=== PATIENT | female | born 1955 | race Caucasian/White ===

== ENCOUNTER 2018-02-01 20:03 | Emergency (ER) | payer MEDICARE ==
[2018-02-01 21:52] LABS: BILIRUBIN,URINE NEGATIVE (NEG); CLARITY,URINE CLEAR; COLOR,URINE YELLOW; GLUCOSE,URINE NEGATIVE (NEG); NITRITE,URINE NEGATIVE (NEG); PROTEIN,URINE NEGATIVE (NEG-TRACE); UROBILINOGEN,URINE 0.2 mg/dL (0.2 mg/dL)
[2018-02-01 21:57] LABS: BACTERIA,URINE MANY /HPF (0-FEW); RBC,URINE 0 /HPF (0-2); SQUAMOUS EPITHELIAL CELL,UR MANY /LPF; WBC,URINE 20-40 /HPF (0-4)
== END 2018-02-01 22:14 | disposition home or self-care (01) ==
LOC: ER 20:03
DX: N39.0 Urinary tract infection, site not specified (principal); E11.9 Type 2 diabetes mellitus without complications; E78.00 Pure hypercholesterolemia, unspecified; I10 Essential (primary) hypertension; Z90.49 Acquired absence of other specified parts of digestive tract; Z98.51 Tubal ligation status; Z90.711 Acquired absence of uterus with remaining cervical stump; Z79.4 Long term (current) use of insulin; Z88.2 Allergy status to sulfonamides; Z88.6 Allergy status to analgesic agent; Z88.5 Allergy status to narcotic agent; Z88.8 Allergy status to other drugs, medicaments and biological substances; Z91.041 Radiographic dye allergy status
CPT/HCPCS: 81001; 99283

== ENCOUNTER 2018-02-06 15:14 | Emergency (ER) | payer MEDICARE | END 2018-02-06 16:40 | disposition home or self-care (01) | LOC: ER 16:40 | DX: G89.29 Other chronic pain (principal); M54.5 Low back pain; E11.9 Type 2 diabetes mellitus without complications; E78.00 Pure hypercholesterolemia, unspecified; K21.9 Gastro-esophageal reflux disease without esophagitis; I10 Essential (primary) hypertension; F31.9 Bipolar disorder, unspecified; Z90.49 Acquired absence of other specified parts of digestive tract; Z90.711 Acquired absence of uterus with remaining cervical stump; Z88.2 Allergy status to sulfonamides; Z91.041 Radiographic dye allergy status; Z88.5 Allergy status to narcotic agent; Z88.8 Allergy status to other drugs, medicaments and biological substances | CPT/HCPCS: 99283 ==

== ENCOUNTER 2018-02-06 22:02 | Emergency (ER) | payer MEDICARE | END 2018-02-06 22:39 | disposition home or self-care (01) | LOC: ER 22:02 | DX: M54.5 Low back pain (principal); E78.00 Pure hypercholesterolemia, unspecified; E11.9 Type 2 diabetes mellitus without complications; I10 Essential (primary) hypertension; F31.9 Bipolar disorder, unspecified; Z90.49 Acquired absence of other specified parts of digestive tract; Z98.51 Tubal ligation status; Z90.711 Acquired absence of uterus with remaining cervical stump; Z88.2 Allergy status to sulfonamides; Z90.410 Acquired total absence of pancreas; Z88.5 Allergy status to narcotic agent; Z88.8 Allergy status to other drugs, medicaments and biological substances | CPT/HCPCS: 99283 ==

== ENCOUNTER 2018-02-06 23:03 | Emergency (ER) | payer MEDICARE ==
[2018-02-06] MEDS: KETOROLAC 60 MG/2 ML INJ. IM (23:30)
[2018-02-07] MEDS: ONDANSETRON ODT 4 MG TAB.RAPDIS. PO (00:01)
== END 2018-02-07 00:02 | disposition home or self-care (01) ==
LOC: ER 02-07 00:02
DX: M54.5 Low back pain (principal); G89.29 Other chronic pain; E78.00 Pure hypercholesterolemia, unspecified; E11.9 Type 2 diabetes mellitus without complications; K21.9 Gastro-esophageal reflux disease without esophagitis; I10 Essential (primary) hypertension; Z98.51 Tubal ligation status; Z90.49 Acquired absence of other specified parts of digestive tract; Z90.711 Acquired absence of uterus with remaining cervical stump; Z88.2 Allergy status to sulfonamides; Z90.410 Acquired total absence of pancreas; Z88.5 Allergy status to narcotic agent; Z88.8 Allergy status to other drugs, medicaments and biological substances
CPT/HCPCS: 96372; 99284-25; J1885

== ENCOUNTER 2020-11-08 03:24 | Emergency (ER) | payer MEDICARE ==
[~2020-11-08] VITALS: Ht 162.6 cm; Wt 104.5 kg
[~2020-11-08 03:24] MED LIST: ACET500T68 PO; ARIP20TA5 PO; ASPI-630 PO; ASPI-886 PO; CEPH-264 PO; CETI10TA16 PO; CYCL10TA2 PO; HYDR12.58 PO; INSU100C4 SQ; INSU100I27 SQ; INSU100V13 SQ; LOSA100T14 PO; LOSA25TA54 PO; LOVA40TA2 PO; MELA10TA PO; METF750T39 PO; NITR100C62 PO; NYST15CR TP; RISP4TAB65 PO; SITA100T PO; TEMA15CA PO; TEMA30CA PO; TRAZ-118 PO; UBID1CAP41 PO
[2020-11-08 03:25] VITALS: BP 171/74
--- NOTE | 2020-11-08 03:57 | PHYS DOC ---
Past Medical History Past Medical History: Bipolar, Diabetes-Type II, High Cholesterol, Hypertension Past Surgical History: Cholecystectomy, Hysterectomy, Tonsillectomy, Tubal ligation Additional Past Surgical Histo: partial hysterectomy, wisdom teeth removal Smoking Status: Former Smoker Alcohol Use: None Drug Use: None General Adult EDM: Chief Complaint: BACK PAIN - NO INJURY HPI: HPI: 65-year-old female with past medical history multiple comorbidities, presents the ED with complaints of "I had back pain in multiple places," but upon ed arrival, reports back pain is now a 1/8 and has "resolved." States pain woke her up. Denies any falls or traumas. No history of prior back problems or surgeries. Patient also reports yesterday she had subjective fever/chills and nausea. Was told by her primary care physician to be tested for Covid. Is requesting a covid test. No history of hospitalizations or admissions in the past 3 months. No known Covid exposure. Review of Systems: Review of Systems: Constitutional: Denies fever or chills. [] Eyes: Denies change in visual acuity. [] HENT: Denies nasal congestion or sore throat. [] Respiratory: Denies cough or shortness of breath. [] Cardiovascular: Denies chest pain or edema. [] GI: Denies abdominal pain, nausea, vomiting, bloody stools or diarrhea. [] : Denies dysuria, hematuria, urinary or bowel retention or incontinence Musculoskeletal: Denies back pain or joint pain. [] Integument: Denies rash. [] Neurologic: Denies headache, neck stiffness, saddle anesthesia, focal weakness or sensory changes. [] Endocrine: Denies polyuria or polydipsia. [] Lymphatic: Denies swollen glands. [] Psychiatric: Denies depression or anxiety. [] Heart Score: Risk Factors: Risk Factors: DM, Current or recent (<one month) smoker, HTN, HLP, family history of CAD, obesity. Risk Scores: Score 0 - 3: 2.5% MACE over next 6 weeks - Discharge Home Score 4 - 6: 20.3% MACE over next 6 weeks - Admit for Clinical Observation Score 7 - 10: 72.7% MACE over next 6 weeks - Early Invasive Strategies Allergies: Allergies: Allergies Coded Allergies Type Severity Reaction Last Updated Verified Sulfa (Sulfonamide Antibiotics) Allergy Intermediate hives 12/09/15 Yes iodine Allergy Intermediate 12/09/15 Yes magnesium stearate Allergy Intermediate Swelling 02/02/18 Yes naproxen Allergy Intermediate hives 12/09/15 Yes Uncoded Allergies Type Severity Reaction Last Updated Verified stearic acid Allergy Severe facial swelling 06/22/15 Physical Exam: PE: Constitutional: Well developed, well nourished, no acute distress, non-toxic appearance. HENT: Normocephalic, atraumatic, Eyes: EOMI, conjunctiva normal, no discharge. Neck: Normal range of motion, supple, Cardiovascular: S1/2 present, regular rhythm Lungs & Thorax: Speaking in full sentences, bilateral equal chest rise, no tachypnea or increased work of breathing Abdomen: soft, no tenderness, Skin: Warm, dry, no erythema, no rash. [] Back: No midline tenderness, no CVA tenderness, Extremities: No tenderness, no cyanosis, no edema Neurologic: Alert and oriented X 3, normal motor function, normal sensory function, no focal deficits noted. [] Psychologic: Affect normal, judgement normal, mood normal. [] Current Patient Data: Vital Signs: Vital Signs Date Time Temp Pulse Resp B/P (MAP) Pulse Ox O2 Delivery O2 Flow Rate FiO2 11/08/20 03:25 98.0 85 20 171/74 (106) 97 Room Air 98.0 EKG: EKG: [] Radiology/Procedures: Radiology/Procedures: [] Course & Med Decision Making: Course & Med Decision Making Pertinent Labs and Imaging studies reviewed. (See chart for details) COVID-19 CRITERIA: The patient was evaluated during the global COVID-19 pandemic, and that diagnosis was suspected/considered upon their initial presentation. Their evaluation, treatment and testing was consistent with current guidelines for patients who present with complaints or symptoms that may be related to COVID-19 Patient well-appearing and in no distress. Cannot reproduce any back pain and states "it's gone." Covid test performed. Has asymptomatic hypertension. Will discharge home with strict ED return precautions were given for stroke, chest pain, difficulty breathing. Encouraged urgent outpatient follow-up with PMD follow-up in 48 to 72 hours. Life-threatening processes were considered but are low suspicion at this time, given history, physical exam and ED workup. Pt was educated on all prescription medications and adverse effects. All patient's que stions were answered and pt was stable at time of discharge. Life/limb-threatening differential includes but is not limited to, foreign body, infection/sepsis, congestive heart failure or pulmonary edema, lung cancer intrathoracic mass, bronchoconstriction, asthma/COPD/lung disease exacerbation, pneumothorax or hemothorax, pulmonary emboli, autoimmune/neurologic disease or toxidrome. I spoken with the patient and her caregivers. I explained the patient's condition, diagnoses and treatment plan based on the information available to me at this time. I have answered the patient and her caregiver's questions and addressed any concerns. The patient and her caregivers have a good understanding of patient's diagnosis, condition and treatment plan as can be exp ected at this point. Vital signs have been stable. Patient's condition is stable and appropriate for discharge from the emergency department. Patient will pursue further outpatient evaluation with primary care physician or other designated or consulting physician as outlined in the discharge instructions. The patient and/or caregivers are agreeable to this plan of care and follow-up instructions have been explained in detail. The patient and/or caregivers have received these instructions in written form and have expressed an understanding of the discharge instructions. The patient and/or caregivers are aware that any significant change of condition or worsening of symptoms should prompt immediate return to this or the closest emergency department or c all to 911. Ewa Disclaimer: Ewa Disclaimer: This electronic medical record was generated, in whole or in part, using a voice recognition dictation system. Departure Departure Impression: Primary Impression: Encounter for laboratory testing for COVID-19 virus Disposition: 01 DC HOME SELF CARE/HOMELESS Condition: STABLE Referrals: ISIDRO SEYMOUR MD (PCP) Patient Instructions: Back Pain, Adult, Fever, Adult Additional Instructions: Return to ED immediately if your oxygen level drops below 90% (purchase a pulse oximetry at a medical supply store), difficulties breathing including rapid breathing or increased work of breathing (skin sucking under ribs), chest pain or stroke-like symptoms (facial droop, speech changes, arm/leg weakness). You have been tested for COVID-19. It is an infection caused by a new type of coronavirus. COVID-19 will cause cold-like or mild flu symptoms in most. It can cause more severe symptoms like problems breathing in some. There is no treatment for COVID-19. The body will clear the infection over time. Self-care will help to ease discomfort. Steps to Take: Self-Care Rest as needed. Healthy habits may help you feel better. Steps include: Choose healthy foods including fruits and vegetables. Drink water throughout the day. Get plenty of sleep each night. If you smoke, try to quit. It may ease breathing. Avoid alcohol. Keep Others Healthy The virus can spread to others. Droplets are released every time you sneeze or cough. The droplets can get into the mouth, nose, or eyes of people near you and lead to infection. To lower the chances of spreading COVID-19 to others: Stay at home until your doctor has said it is safe to leave. If you tested positive this will mean staying isolated until both of the following are true: At least 7 days have passed since the start of illness. You are free of fever for at least 72 hours without the use of medicine. During this time: - Avoid public areas, events, or transportation. Do not return to work or school until your doctor has said it is safe to do so. - Call ahead if you need to go to a medical center. Let them know you may have COVID-19. It will help them guide you where to go. They may also ask you to wear a facemask when you come to the office. - If you call for emergency medical services, let them know you may have COVID- 19. While at home: - Try to avoid close contact with others. Stay about 6 feet away. - If possible, spend most of your time in a separate room from others. - Use a face mask if you will be in close contact with others such as sharing a room or vehicle. - Have someone wipe down common surfaces in the home. Use household drafting instructor every day on areas like doorknobs, counters, or sinks. - Cough or sneeze into a tissue. Throw the tissue away right after use. If a tissue is not available, cough or sneeze into your elbow. - Wash your hands often. Wash them after sneezing or coughing. Use soap and water and wash for at least 20 seconds. Alcohol based hand stitch cleaner can be used if soap and water is not available. - Do not prepare food for others. Avoid sharing personal items like forks, spoons, or toothbrushes. - Avoid close contact with pets while you are sick. There is no evidence of the virus passing to pets. This is a safety step until more is known about this virus. Isolation can be frustrating. Social interaction can help. Keep in touch with friends and family through phone and tech options. You can still interact with others in your home, just keep a safe distance of about 6 feet. Follow-up: Your doctors office will check in with you to see if there are any changes in your health. You may be asked to keep track of symptoms to share with them. They will also let you know when you are clear to be in public again. Problems to Look Out For: Contact your doctor if your recovery is not going as you expect. Get emergency care if you have problems such as: - Trouble breathing - Nonstop chest pain or pressure - Changes in awareness, confusion, or problems waking - Lips or face have bluish color - Worsening of symptoms If you think you have an emergency, call for emergency medical services right away. As taken from [facility],LE Gupta DO Nov 08, 2020 03:57
== END 2020-11-08 04:05 | disposition home or self-care (01) ==
LOC: ER 03:24
DX: M54.5 Low back pain (principal); Z20.818 Contact with and (suspected) exposure to other bacterial communicable diseases; E11.9 Type 2 diabetes mellitus without complications; E78.00 Pure hypercholesterolemia, unspecified; I10 Essential (primary) hypertension; F31.9 Bipolar disorder, unspecified; Z90.49 Acquired absence of other specified parts of digestive tract; Z90.710 Acquired absence of both cervix and uterus; Z98.51 Tubal ligation status; Z88.2 Allergy status to sulfonamides; Z91.041 Radiographic dye allergy status; Z88.8 Allergy status to other drugs, medicaments and biological substances
CPT/HCPCS: 82962; 99283; U0003; C9803

== ENCOUNTER 2022-02-20 11:00 | Emergency (ER) | payer MEDICARE, MEDICAID ==
[~2022-02-20] VITALS: Ht 160 cm; Wt 108.0 kg
[~2022-02-20 11:00] MED LIST changes: +AMLO-186 PO; +ATOR10TA60 PO; +CYCL10TA19 PO; -CYCL10TA2 PO; +DIVA-53 PO; +FLUT9.9S NS; +INSU100V37 SQ; +INSU100V9 SQ; +MULT-650 PO; +RISP2TAB78 PO
--- NOTE | 2022-02-20 11:20 | PHYS DOC ---
Past Medical History Past Medical History: Bipolar, Diabetes-Type II, High Cholesterol, Hypertension Additional Past Medical Histor: MELAN[place] Past Surgical History: Cholecystectomy, Hysterectomy, Tonsillectomy, Tubal ligation Additional Past Surgical Histo: partial hysterectomy, wisdom teeth removal, SKIN GRAFT Smoking Status: Former Smoker Alcohol Use: None Drug Use: None General Adult EDM: Chief Complaint: CHEST PAIN HPI: HPI: Patient is a 66 year old female presents here with chest pain. She has had the same chest pain intermittently for many months. She is been recently admitted here for this chest pain. She is seen by cardiology. She is scheduled for an outpatient stress test next Wednesday. She reports that the pain is midsternal, does not radiate. She describes it as sharp and pressure, lasting from seconds to minutes at a time. She reports occasional dyspnea, though not persistently. She denies pleuritic pain, cough, hemoptysis. She denies dizziness or diaphoresis. She denies abdominal pain. She denies nausea or vomiting. She has chronic lower extremity swelling, which is unchanged. She denies calf pain. She denies exertional chest pain, denies exertional dyspnea. Denies syncope or near syncope. She admits that this feels just like her chest pain that she has had multiple times previously. No changes today. Review of Systems: Review of Systems: As per HPI. Heart Score: C/O Chest Pain: Yes HEART Score for Chest Pain: HEART Score for Chest Pain Response (Comments) Value History Moderately Suspicious 1 ECG Nonspecific Repolarizatio 1 Age >45 - < 65 1 Risk Factors >3 Risk Factors or Hx CAD 2 Troponin < Normal Limit 0 Total 5 Risk Factors: Risk Factors: DM, Current or recent (<one month) smoker, HTN, HLP, family history of CAD, obesity. Risk Scores: Score 0 - 3: 2.5% MACE over next 6 weeks - Discharge Home Score 4 - 6: 20.3% MACE over next 6 weeks - Admit for Clinical Observation Score 7 - 10: 72.7% MACE over next 6 weeks - Early Invasive Strategies Allergies: Allergies: Allergies Coded Allergies Type Severity Reaction Last Updated Verified Sulfa (Sulfonamide Antibiotics) Allergy Intermediate hives 12/09/15 Yes iodine Allergy Intermediate 12/09/15 Yes magnesium stearate Allergy Intermediate Swelling 02/02/18 Yes naproxen Allergy Intermediate hives 12/09/15 Yes latex Allergy Unknown 01/08/22 Yes aspirin Adverse Reaction Unknown 01/09/22 Yes ibuprofen Adverse Reaction Unknown 01/10/22 Yes Uncoded Allergies Type Severity Reaction Last Updated Verified stearic acid Allergy Severe facial swelling 06/22/15 Physical Exam: PE: Constitutional: Well developed, well nourished, no acute distress, non-toxic appearance. [] HENT: Normocephalic, atraumatic, bilateral external ears normal, oropharynx moist, no oral exudates, nose normal. [] Eyes: PERRL, EOMI, conjunctiva normal, no discharge. [] Neck: Normal range of motion, no tenderness, supple, no stridor. [] Cardiovascular:Heart rate regular rhythm, no murmur, +2 radial +2 posterior tibial pulses bilaterally Lungs & Thorax: Bilateral breath sounds clear to auscultation, no rales, rhonchi or wheezes. Equal chest rise. Palpation of the midsternal chest reproduces pain. No crepitus or subcutaneous emphysema. No chest wall deformity. Abdomen: [place] is obese, soft, nondistended, nontender to palpation. No palpable pulsatile mass. No CVA tenderness. No flank abdominal ecchymoses. Skin: Warm, dry, no erythema, no rash. [] Back: No tenderness, no CVA tenderness. [] Extremities: No tenderness, no cyanosis, no clubbing, ROM intact, bilateral, symmetric 2+ lower extremity edema. No calf tenderness. No bony tenderness. Neurologic: Alert and oriented X 3, normal motor function, normal sensory function, no focal deficits noted. [] Psychologic: Affect normal, judgement normal, mood normal. She is pleasant and cooperative. EKG: EKG: EKG is interpreted at 1114 Rhythm is sinus Rate is 76 bpm [place] is normal QTc 518 ms No STEMI Radiology/Procedures: Radiology/Procedures: IMAGING REPORT Signed PATIENT: JAZMYN MONGE ACCOUNT: [id number] : 1955 LOCATION: ER AGE: 66 SEX: F EXAM STATUS: REG ER ORD. PHYSICIAN: PRATIMA CALDERON DO REASON: chest pain PROCEDURE: PORTABLE CHEST 1V XR CHEST 1V History: Chest pain Comparison: 01/08/2022 Technique: Portable AP radiograph of the chest. Findings: The lungs are adequately inflated. No airspace consolidation, pleural effusion or pneumothorax. The cardiomediastinal silhouette and pulmonary vasculature are within normal limits. Mild degenerative osteophytes in the thoracic spine. Soft tissues are unremarkable. Impression: 1. No acute cardiopulmonary process. Electronically signed by: Hill Prieto MD (02/20/2022 12:57 PM) [id number] DICTATED and SIGNED BY: HILL PRIETO MD DATE: 02/20/22 1256 Course & Med Decision Making: Course & Med Decision Making Pertinent Labs and Imaging studies reviewed. (See chart for details) The patient was given aspirin, she usually takes this at home. She declined nitroglycerin, is not having any severe chest pain. I discussed the findings, differential diagnosis and plan of care with her. Serial troponin exams are negative. I reviewed her previous hospitalization records. She has scheduled stress testing for next Wednesday. There is no current indication for further invasive exams, imaging or admission at this time based on current clinical presentation. She is comfortable to plan for discharge home. I gave her very strict return precautions, explained that if any changes with her chest pain, she has worsening chest pain, more severe chest pain at rest, her symptoms of unstable angina, she should return immediately. She verbalizes understanding. Ewa Disclaimer: Ewa Disclaimer: This electronic medical record was generated, in whole or in part, using a voice recognition dictation system. Departure Departure Impression: Primary Impression: Recurrent chest pain Disposition: HOME / SELF CARE / HOMELESS Condition: STABLE Referrals: THAIS HICKS MD (PCP) Patient Instructions: Chest Pain (Nonspecific) Additional Instructions: Please keep your schedule appointment for your stress test with the digital ad trafficker on Wednesday. Return to the ER immediately for acute changes in your pain, more severe pain, severe shortness of breath, coughing up blood, temperature 100.4 or higher, severe dizziness, weakness, fall or injury or any other concerns. Continue to take your medications as directed by your primary care doctor. PRATIMA CALDERON DO Feb 20, 2022 11:20
[2022-02-20] MEDS ORDERED: NITROGLYCERIN SUBLINGUAL 0.4 MG BOTTLE OF 25. SL PRN (11:30)
[2022-02-20] MEDS ORDERED: ASPIRIN CHEWABLE 81 MG TABLET. PO ONE (11:30)
[2022-02-20 11:39] LABS: BASO % 1 % (0-3); EOS # 0.1 x10^3/uL (0.0-0.7); EOS % 2 % (0-3); HEMATOCRIT 41.9 % (36.0-47.0); HEMOGLOBIN 14.1 g/dL (12.0-15.5); LYMPH # 1.9 x10^3/uL (1.0-4.8); LYMPH % 28 % (24-48); MEAN CORPUSCULAR HEMOGLOBIN 30 pg (25-35); MEAN CORPUSCULAR HGB CONC 34 g/dL (31-37); MEAN CORPUSCULAR VOLUME 90 fL (79-100); MONO # 0.6 x10^3/uL (0.0-1.1); MONO % 9 % (0-9); NEUT # 4.1 x10^3/uL (1.8-7.7); NEUT % 61 % (31-73); PLATELET COUNT 191 x10^3/uL (140-400); RED BLOOD COUNT 4.67 x10^6/uL (3.50-5.40); RED CELL DISTRIBUTION WIDTH 13.5 % (11.5-14.5); WHITE BLOOD COUNT 6.7 x10^3/uL (4.0-11.0)
[2022-02-20 11:45] LABS: CALCIUM 9.1 mg/dL (8.5-10.1); CREATININE 0.9 mg/dL (0.6-1.0); GFR 62.8; POTASSIUM 3.7 mmol/L (3.5-5.1)
[2022-02-20 11:51] LABS: ALBUMIN 3.5 g/dL (3.4-5.0); ALBUMIN/GLOBULIN RATIO 0.8 (1.0-1.7); TOTAL BILIRUBIN 0.4 mg/dL (0.2-1.0); TOTAL PROTEIN 7.8 g/dL (6.4-8.2)
[2022-02-20 11:56] LABS: BACTERIA,URINE FEW /HPF (0-FEW); RBC,URINE RARE /HPF (0-2); WBC,URINE OCC /HPF (0-4)
--- NOTE | 2022-02-20 12:00 | EKG ---
[facility] [address] [place] [id number] Test Date: 2022-02-20 Test Time: 11:12:51 Pat Name: JAZMYN MONGE Department: Room: Gender: F Insurance Collector: : 1955 Requested By: PRATIMA CALDERON Order Number: [id number] Reading MD: Kahlil Rosario Measurements Intervals [place] Rate: 76 P: 52 DC: 140 QRS: 27 QRSD: 74 T: 59 QT: 456 QTc: 518 Interpretive Statements SINUS RHYTHM PROLONGED QT Electronically Signed On 02-21-2022 21:19:39 CDT by Kahlil Rosario
--- NOTE | 2022-02-20 12:59 | RAD ---
XR CHEST 1V History: Chest pain Comparison: 01/08/2022 Technique: Portable AP radiograph of the chest. Findings: The lungs are adequately inflated. No airspace consolidation, pleural effusion or pneumothorax. The c ardiomediastinal silhouette and pulmonary vasculature are within normal limits. Mild degenerative ost eophytes in the thoracic spine. Soft tissues are unremarkable. Impression: 1. No acute cardiopulmonary process. Electronically signed by: Hill Andujar MD (02/20/2022 12:57 PM) [id number]
[2022-02-20 15:40] VITALS: BP 149/77
== END 2022-02-20 15:48 | disposition home or self-care (01) ==
LOC: ER 11:00
DX: R07.2 Precordial pain (principal); F31.9 Bipolar disorder, unspecified; E11.9 Type 2 diabetes mellitus without complications; E78.00 Pure hypercholesterolemia, unspecified; I10 Essential (primary) hypertension; Z87.891 Personal history of nicotine dependence; Z88.2 Allergy status to sulfonamides; Z91.040 Latex allergy status; Z88.5 Allergy status to narcotic agent; Z88.6 Allergy status to analgesic agent; Z88.8 Allergy status to other drugs, medicaments and biological substances
CPT/HCPCS: 36415; 71045; 80053; 81001; 83690; 83735; 83880; 84484; 85025; 93005; 99285-25